=== PATIENT | male | born 1965 | race Caucasian/White ===

== ENCOUNTER 2017-08-31 18:16 | Emergency (ER) | payer OTHER ==
[~2017-08-31] VITALS: Ht 182.9 cm; Wt 87.0 kg
[2017-08-31 18:29] VITALS: BP 162/105
[2017-08-31] MEDS ORDERED: HYDROcodone/APAP 5/325 TABLET ONE (18:44)
[2017-08-31] MEDS ORDERED: HYDROcodone/APAP 5/325 TABLET PO ONE (19:00)
== END 2017-08-31 20:33 | disposition home or self-care (01) ==
LOC: ED 20:27
DX: S93.621A Sprain of tarsometatarsal ligament of right foot, initial encounter (principal); S93.491A Sprain of other ligament of right ankle, initial encounter; W22.8XXA Striking against or struck by other objects, initial encounter; Y93.6A Activity, physical games generally associated with school recess, summer camp and children; Y99.8 Other external cause status; Y92.009 Unspecified place in unspecified non-institutional (private) residence as the place of occurrence of the external cause
CPT/HCPCS: 99284